=== PATIENT | female | born 1945 | race Caucasian/White ===

== ENCOUNTER 2021-09-11 15:10 | Emergency (ER) | payer MEDICARE, SELFPAY ==
[2021-09-11 15:10] VITALS: BP 170/111; PULSE 69; RESP 16; TEMP 36; O2SAT 98; BMI 37.5
--- NOTE | 2021-09-11 15:32 | ED.VIS.BACK ---
HPI History of Present Illness Chief Complaint: Back Informant: patient and spouse/S.O. Onset/Context/Timing Onset: - (Acute on chronic) Context: Gradual Onset Injury: - (Denies any new injury) Quality: Aching and Throbbing Location: Lumbar, Buttock and Left Leg Current Severity: Moderate Maximum Severity: Severe Narrative Narrative: Patient present secondary to low back pain. She is a history of chronic back pain and is seen Dr. Napoles, spine surgeon as well as pain management. Patient is currently on Percocet and recently completed a course of prednisone. She states that she is supposed to follow-up this week for preadmission testing to have back surgery/discectomy. Patient presents today because her pain is not well controlled. She reports pain shooting down her left leg and most severe over the lateral portion of the left lower leg. She does complain of bilateral leg swelling over the last several days. Patient does report some problems with bladder control, however on further questioning she has the sensation that she needs to go to size difficulty getting to the bathroom in time. She denies fever or chills. [facility] Medical History (Updated 09/11/21 @ 17:[address] Maria Villa MD) Back pain GERD (gastroesophageal reflux disease) Hyperthyroidism Peripheral edema Home Medications Lantansprost 1 RIGHT EYE DAILY 09/03/13 [History Last Taken Unknown] aspirin 325 mg PO DAILY@0800 09/03/13 [History Last Taken Unknown] atenolol 75 mg PO DAILY 09/03/13 [History Last Taken 09/09/13 05:00] cholecalciferol (vitamin D3) [Vitamin D] 3,000 units PO DAILY 09/03/13 [History Last Taken Unknown] cranberry 400 mg PO 09/03/13 [History Last Taken Unknown] furosemide 40 mg PO DAILY 09/03/13 [History Last Taken Unknown] lansoprazole [Prevacid] 30 mg PO DAILY 09/03/13 [History Last Taken 09/09/13 05:00] lisinopril 40 mg PO DAILY 09/03/13 [History Last Taken 09/09/13 05:00] lorazepam 0.5 mg PO BID PRN PRN 09/03/13 [History Last Taken Unknown] methimazole 2.5 mg PO 09/03/13 [History Last Taken Unknown] multivitamin with folic acid [Thera] 1 tab PO DAILY 09/03/13 [History Last Taken Unknown] potassium chloride [K-Dur] 80 meq PO DAILY 09/03/13 [History Last Taken Unknown] methimazole 2.5 mg PO 5X/DAY 09/09/13 [History Last Taken 09/09/13 05:00] cyclobenzaprine 10 mg PO BID PRN #10 tab 09/11/21 [Rx Last Taken Unknown] oxycodone-acetaminophen [Percocet] 2 tab PO Q6H PRN 3 Days #20 tab 09/11/21 [Rx Last Taken Unknown] prednisone See Taper PO DAILY #63 tab 09/11/21 [Rx Last Taken Unknown] Allergy/AdvReac Type Severity Reaction Status Date / Time atorvastatin calcium Allergy MUSCLE Verified 09/11/21 15:13 [From Lipitor] CRAMPING gabapentin [From Neurontin] Allergy Swelling Verified 09/11/21 15:13 codeine AdvReac Vomiting Verified 09/11/21 15:13 meperidine HCl [From Demerol] AdvReac SEIZURE Verified 09/11/21 15:13 LIKE REACTION naproxen AdvReac Vomiting Verified 09/11/21 15:13 paroxetine HCl [From Paxil] AdvReac INCREASED Verified 09/11/21 15:13 SERATONIN LEVELS pregabalin [From Lyrica] AdvReac Swelling Verified 09/11/21 15:13 Sulfa (Sulfonamide AdvReac TALK Verified 09/11/21 15:13 Antibiotics) CRAZY Surgical History H/O: hysterectomy History of left knee replacement History of left shoulder replacement Social History Smoking Status: Former smoker ROS ROS ED Constitutional Constitutional ED: Denies chills or fever(s) Eyes Eyes: Denies change in vision ENT ENT ED: Denies sore throat Cardiovascular Cardiovascular: Denies chest pain Respiratory/Chest Respiratory/Chest: Denies cough or dyspnea Gastrointestinal Gastrointestinal: Denies abdominal pain, diarrhea, nausea or vomiting Genitourinary Genitourinary ED: Denies dysuria Musculoskeletal Musculoskeletal: Reports back pain Integumentary Denies rash Neurologic Neurologic: Reports other Details: Pain radiation to left leg ; Denies headache(s) or weakness Psychiatric Psychiatric: Denies anxiety or depression Allergic/Immunologic Allergic/Immunologic ED: Denies urticaria EXAM Physical Exam Const Vital Signs: 09/11/21 15:10 09/11/21 16:21 09/11/21 17:16 Temperature 96.8 F L Temperature Source Temporal Pulse Rate 69 66 60 Respiratory Rate 16 16 16 Blood Pressure 170/111 H 163/86 H 161/85 H Blood Pressure Mean 130 111 Pulse Ox 98 96 98 Oxygen Delivery Method Room Air Room Air Positive obese Nutritional Appearance: obese Eyes PERRL and EOMs intact bilaterally Neck supple Resp normal respiratory effort and clear to auscultation bilaterally Cardio regular rate and regular rhythm GI soft to palpation and non-tender Back/Spine Back/Spine Narrative: No tenderness of the thoracic or midline lumbar spine. She does have reproducible tenderness over the left SI joint and sciatic notch. No overlying skin changes. Extremity Extremity Narrative: 2-3+ edema noted to the bilateral lower extremities, symmetric. No significant erythema. Strong distal pulses. Neuro oriented x3 Neuro Narrative: No focal neuro deficits noted. Good strength on testing, but pain with movement. Sensorium / Orientation: alert Skin no rashes or lesions noted MDM MDM MDM Narrative Medical decision making narrative: Patient is initially given 4 mg of morphine, 4 mg of Zofran, 125 mg of Solu-Medrol. Lab work and Covid swab obtained in case of hospital admission needs. Lab Data Attestation: I reviewed the patient's lab results. Labs: Laboratory Results - last 24 hr 09/11/21 09/11/21 15:40 15:40 WBC 9.0 RBC 4.70 Hgb 14.0 Hct 41.9 MCV 89.1 MCH 29.8 MCHC 33.4 RDW Std Deviation 43.8 RDW Coeff of Ashwin 13.4 Plt Count 135 L MPV 12.4 H Immature Gran % (Auto) 0.200 Neut % (Auto) 66.0 Lymph % (Auto) 25.6 Titus % (Auto) 6.9 Eos % (Auto) 1.1 Baso % (Auto) 0.2 Absolute Neuts (auto) 6.0 Absolute Lymphs (auto) 2.31 Nucleated RBC % 0 Sodium 140 Potassium 4.1 Chloride 106 Carbon Dioxide 28.0 Anion Gap 6 BUN 17 Creatinine 0.72 Estim Creat Clear Calc 44.80 Est GFR (MDRD) Af Amer 101 Est GFR (MDRD) Non-Af 83 BUN/Creatinine Ratio 23.6 H Glucose 102 Calcium 9.1 Rapid Covid test negative. Treatment and Re-Evaluation Comments:: Nursing staff states that despite the morphine patient was still complaining of severe pain. She was given 1 mg of IV Dilaudid. I spoke with Dr. Napoles, her spine surgeon. He states that she has a nonacute disc that they do plan on doing him discectomy on. This is not done that would be done emergently as an inpatient. He recommended trying to control this current pain about and following up as an outpatient to schedule surgery. Patient is scheduled to see her PCP tomorrow morning for physical exam to be cleared for surgery. She would like to try to keep this appointment. She is currently on Percocet. I did advise her she could take 2 tabs at a time. We will also add a steroid taper and give her a muscle relaxer to help with spasm. She is complaining of bilateral leg swelling. She does admit that she recently cut her Lasix dose in half because she is having so much pain try to get to the bathroom. She did recently go back on her regular dose by did encourage her to double her dose the next few days to get the extra fluid off. There is nothing on her findings concerning for DVT at this time. We did discuss hospital admission for pain control and physical therapy. She is declining that at this time and wishes to try to go home. Discharge Plan Triage Chief Complaint: Back ED Provider: Maria Villa Dx/Rx/DC Orders Clinical Impression: Back pain Instructions: ED Back Pain (Acute or Chronic) Prescriptions: New oxycodone-acetaminophen [Percocet] 5-325 mg tablet 2 tab PO Q6H PRN (Reason: pain) 3 Days Qty: 20 RF: 0 cyclobenzaprine 10 mg tablet 10 mg PO BID PRN (Reason: muscle spasm) Qty: 10 RF: 0 prednisone 10 mg tablet See Taper mg PO DAILY Qty: 63 RF: 0 No Action furosemide 40 MG tablet 40 mg PO DAILY RF: 0 atenolol 25 MG tablet 75 mg PO DAILY RF: 0 lansoprazole [Prevacid] 30 MG capsule 30 mg PO DAILY RF: 0 lisinopril 20 MG tablet 40 mg PO DAILY RF: 0 potassium chloride [Klor-Con M20] 20 MEQ tablet 80 meq PO DAILY RF: 0 aspirin 325 MG tablet 325 mg PO DAILY@0800 RF: 0 methimazole 5 MG tablet 2.5 mg PO RF: 0 multivitamin with folic acid [Thera] 1 TABLET tablet 1 tab PO DAILY RF: 0 lorazepam 0.5 MG tablet 0.5 mg PO BID PRN PRN (Reason: Sleep) RF: 0 cholecalciferol (vitamin D3) [Vitamin D3] 1,000 UNIT capsule 3,000 units PO DAILY RF: 0 Lantansprost 1 Right Eye DAILY RF: 0 cranberry 400 MG capsule 400 mg PO RF: 0 methimazole 5 MG tablet 2.5 mg PO 5X/DAY RF: 0 Primary Care Provider: Orin Gates Referrals: Orin Gates DO [Primary Care Provider] - [facility] appointment Disposition Disposition: Home, Self Care
[2021-09-11] MEDS: MethylPREDNISolone 125 MG/2 ML Vial 80 MG IV (15:37)
[2021-09-11] MEDS: Ondansetron 4 MG/2 ML Vial IV (15:38)
[2021-09-11] MEDS: Morphine 4 MG/ML Syringe IV (15:39)
[2021-09-11 15:53] LABS: Absolute Lymphocyte Count 2.31 X10^3/uL (0.83-4.51); Basophil# 0.02 X10^3/uL; Basophil% 0.2 % (0-1); Eosinophils% 1.1 % (0-5); Hematocrit 41.9 % (37-47); Lymphocyte # 2.31 X10^3/ul (0.83-4.51); Lymphocyte % 25.6 % (19-41); Mean Corp Hgb Conc 33.4 g/dL (32-36); Mean Corpuscular Hgb 29.8 pg (27.0-32.0); Mean Corpuscular Volume 89.1 fL (81-99); Mean Platelet Vol. 12.4 fl (6.2-12.0); Monocyte# 0.62 X10^3/uL; Monocyte% 6.9 % (0-10); NRBC Flagged by Analyzer 0 % (0-5); Neutrophil # 5.96 X10^3/uL (2.7-7.7); Platelet Count 135 K/mm3 (150-450); RBC Distribution Width CV 13.4 % (11.6-14.6); RBC Distribution Width SD 43.8 fl (35.1-43.9)
[2021-09-11 16:07] LABS: Anion Gap 6 (5-15); BUN 17 mg/dL (7-18); BUN/Creat Ratio 23.6 RATIO (10-20); Calcium,Total 9.1 mg/dL (8.5-10.1); Chloride 106 mmol/L (98-107); Creatinine, Serum 0.72 mg/dL (0.55-1.02); EST Glomerular Filtration Rate 83 mL/min (>60); Est Glom Filt Rate - Afr Amer 101 mL/min (>60); Glucose 102 mg/dL (74-106); Potassium 4.1 mmol/L (3.5-5.1); Sodium Level 140 mmol/L (136-145)
[2021-09-11] MEDS: HYDROmorphone 1 MG/ML Syringe IV (16:19)
[2021-09-11 16:21] VITALS: BP 163/86; PULSE 66; RESP 16; O2SAT 96
[2021-09-11 17:16] VITALS: BP 161/85; PULSE 60; RESP 16; O2SAT 98
[2021-09-11] MEDS: cycloBENZAPRine HCl 10 MG Tablet PO (17:17)
== END 2021-09-11 17:37 | disposition home or self-care (01) ==
PROVIDERS: Emergency Provider Emergency Medicine; PCP Internal Medicine
DX: M54.9 Dorsalgia, unspecified (principal); G89.29 Other chronic pain; R60.0 Localized edema; E66.9 Obesity, unspecified; Z68.37 Body mass index [BMI] 37.0-37.9, adult; K21.9 Gastro-esophageal reflux disease without esophagitis; E05.90 Thyrotoxicosis, unspecified without thyrotoxic crisis or storm; Z79.82 Long term (current) use of aspirin; Z79.899 Other long term (current) drug therapy; Z87.891 Personal history of nicotine dependence
CPT/HCPCS: 80048; 85025; 87426; 96374; 96375; 99285; J7030; J2405

== ENCOUNTER 2021-12-01 06:53 | Observation (INO) | payer MEDICARE, SELFPAY ==
[2021-12-01] VITALS (14 sets, daily range): BP systolic 108–150; BP diastolic 58–98; PULSE 53–94; RESP 12–18; TEMP 35.6–36.8; O2SAT 93–100; BMI 37.0
[2021-12-01 06:31] LABS: Bedside Glucose 117 mg/dL (70-110)
--- NOTE | 2021-12-01 06:58 | PCM.OPRPT ---
Problems Associated Problem List Diagnoses (1) Lumbar stenosis: Report of Operation Date of Procedure: 12/01/21 Pre-Operative Diagnosis: 1. Lumbar stenosis, L3-4 with spondylosis 2. Lumbar degenerative disc disease L3-4 3. L3-4 disc herniation Post-Operative Diagnosis: 1. Lumbar stenosis, L3-4 with spondylosis 2. Lumbar degenerative disc disease L3-4 3. L3-4 disc herniation Surgery/Procedure Performed:: 1. L3 bilateral laminectomies, foraminotomies, decompression of bilateral nerve roots 2. L4 bilateral laminectomies, foraminotomies, decompression of bilateral nerve roots Description of Surgical Findings:: The patient is a 76-year-old female with intractable back and leg pain. Image studies confirm the above diagnoses. She has failed conservative treatments to include medication, physical therapy, and injections. The patient opted for operative intervention understanding the risk to include, but not limited to, infection, bleeding, damage to nerves arteries and veins, possibility of spinal fluid leak, continued pain, need for further surgery, deep vein thrombosis, pulmonary embolism, heart attack, risk of stroke or . The patient was identified in the preoperative holding area. There she received preoperative IV antibiotics, Ancef, and was then transferred to the operative suite. Once in the operative suite after general endotracheal anesthesia was established, the patient was positioned prone on the Berny operating table. All bony prominences were padded accordingly. The lumbar spine was prepped and draped in a standard surgical fashion. Bear hugger's were not turned on until the drapes were placed and sealed with Ioban. A midline incision was made and taken down to the lumbodorsal fascia. The fascia was then divided and subperiosteal dissection was taken down to the level of the L3-4 and L4-5 facet joints. Deep retractors were placed. A bone scalpel was used to make laminotomy cuts in the bilateral lamina of L3 and L4. Then a series of rongeurs and Kerrisons were used removing the spinous processes and lamina at L3 and L4. Bilateral foraminotomies were performed decompressing the bilateral nerve roots. The dura was retracted medially but no definitive disc herniation could be identified. The wound was thoroughly irrigated with saline solution. Tisseel was placed over the dura as a hemostatic agent. The fascia was closed with #1 Vicryl, subcutaneous with 2-0 Vicryl, and skin with 2-0 nylon. Sterile dressings were applied with Xeroform, 4 x 4, ABD and tape. Sponge instrument and needle counts were correct at the end of the case. The patient was extubated and taken to the PACU without incident. Ginny Huitron PA-C was present during the entire duration of the case and necessary for critical parts of the case including retraction and closure. Surgeon: Brandon Napoles air route traffic controller: Ginny Huitron Type of Anesthesia: General Specimen's removed: None Drains: None Estimated Blood Loss (mL): 25 Fluids Replaced: 1600 cc Grafts/Implants Used: None Complications None Admit VTE Documentation VTE Present on Admission: No
--- NOTE | 2021-12-01 06:58 | PCM.PN.ORT ---
Subjective Subjective The patient was seen and examined postoperatively in the PACU. She is resting comfortably. Her pain is well controlled. She denies any complaints including numbness tingling or weakness Objective Data Objective Data Vital Signs: Vital Signs Temp Pulse Resp BP Pulse Ox 97.9 F 62 18 135/97 H 98 12/01/21 06:42 12/01/21 06:42 12/01/21 06:42 12/01/21 06:42 12/01/21 06:42 Oxygen Delivery Method Room Air Weight: 229 lb 4.492 oz Body Mass Index (BMI) 37.0 Lab / Micro Data Labs: Laboratory Results - last 24 hr 12/01/21 06:24: POC Glucose 117 H Physical Exam Const alert, oriented x3 and no apparent distress General Appearance: cooperative and comfortable HEENT head/scalp atraumatic Eyes EOMs intact bilaterally and conjunctivae normal Neck full ROM General: normal visual inspection Chest inspection of chest normal Resp normal respiratory effort and normal air movement Cardio regular rate and regular rhythm Peripheral Pulses: pulses 2+ throughout GI soft to palpation, non-tender and non-distended Back/Spine Back/Spine Narrative: Dressing clean dry and intact Cervical Spine: cervical ROM normal Thoracic Spine / Upper Back: normal to inspection Lumbar Spine / Lower Back: normal to inspection Extremity normal to inspection, full ROM, normal capillary refill, no clubbing, cyanosis or edema and no calf tenderness Peripheral Pulses: Yes pulses 2+ throughout Skin no rashes or lesions noted General Skin Exam: no breakdown Neuro oriented x3, CN's II-XII intact bilaterally, moves all extremities, no focal motor deficits, no sensory deficits noted and deep tendon reflexes 2+ bilaterally Motor Exam: strength 5/5 throughout and muscle tone normal throughout Assessment & Plan Assessment/Plan (1) Lumbar stenosis: PLAN: Okay to admit to floor See orders Pain control and mobilization as tolerated Discharge planning, likely home tomorrow
--- NOTE | 2021-12-01 06:58 | PCM.DC.SUM ---
Providers Date of Admission: 12/01/21 Primary Care Physician: Dr. Orin Gates DO Reason For Visit: LUMBAR LAMINECTOMY DECOMPRESSION L3-L4 Diagnosis Discharge Diagnosis (1) Lumbar stenosis: Status: Acute Code(s): M48.061 - Spinal stenosis, lumbar region without neurogenic claudication Plan: Okay to discharge home See discharge instructions Follow-up with Dr. Napoles in 3 weeks for suture removal Medications at Discharge Home Medications atenolol 100 mg PO DAILY 09/03/13 cholecalciferol (vitamin D3) [Vitamin D3] 3,000 units PO DAILY 09/03/13 furosemide 40 mg PO DAILY 09/03/13 lansoprazole [Prevacid] 30 mg PO DAILY 09/03/13 lisinopril 20 mg PO BID 09/03/13 methimazole 2.5 mg PO DAILY 09/03/13 multivitamin with folic acid [Thera] 1 tab PO DAILY 09/03/13 potassium chloride [Klor-Con M20] 80 meq PO DAILY 09/03/13 cyclobenzaprine 10 mg PO BID PRN #10 tab 09/11/21 amlodipine 5 mg PO DAILY 11/17/21 coenzyme Q10 100 mg PO DAILY 11/17/21 estradiol 1 mg PO DAILY 11/17/21 omega-3 fatty acids 1,000 mg PO DAILY 11/17/21 simvastatin 40 mg PO DAILY 11/17/21 hydrocodone-acetaminophen 1 tab PO Q8H PRN 7 Days #28 tab 12/01/21 Hospital Course Operations - (L3, L4 laminectomy decompression) Summary of Care Provided Minutes Spent on Discharge: 15 Hospital Course: The patient is a 76-year-old female who underwent L3 and L4 laminectomy decompression on 12/01/2021. She was subsequently admitted to the floor. The hospitalist was consulted for medical management. The patient progressed well. Her pain was well controlled and she was mobilizing well with physical therapy. No significant medical issues were reported. She was subsequently discharged home on 12/02/2021 to follow-up with Dr. Napoles in 3 weeks. Physical Exam Narrative The patient was seen and examined postoperative day 1. She is lying in bed resting comfortably. She is experiencing some mild pain at her surgery site in the lower back but this is manageable. She has been out of bed multiple times with assistance and up to the bathroom without any issues. Her pain is worse with mobilization. She denies any other complaints including numbness tingling weakness or changes in bowel or bladder function. She is accompanied by her who contributed to the medical history. Const alert, oriented x3 and no apparent distress General Appearance: cooperative and comfortable Orientation / Consciousness: awake, oriented to person, oriented to place and oriented to time HEENT normocephalic and head/scalp atraumatic Eyes EOMs intact bilaterally and conjunctivae normal Neck full ROM General: normal visual inspection Chest inspection of chest normal Resp normal respiratory effort and normal air movement Cardio regular rate and regular rhythm Peripheral Pulses: pulses 2+ throughout GI soft to palpation, non-tender and non-distended Back/Spine Back/Spine Narrative: Dressing clean dry and intact Cervical Spine: cervical ROM normal Thoracic Spine / Upper Back: normal to inspection Extremity normal to inspection, full ROM, normal capillary refill, no clubbing, cyanosis or edema and no calf tenderness Peripheral Pulses: Yes pulses 2+ throughout Skin no rashes or lesions noted General Skin Exam: no breakdown Neuro oriented x3, CN's II-XII intact bilaterally, moves all extremities, no focal motor deficits, no sensory deficits noted and deep tendon reflexes 2+ bilaterally Motor Exam: strength 5/5 throughout and muscle tone normal throughout Weight / BMI Weight Weight: 229 lb 4.492 oz Body Mass Index (BMI) 37.0 ABG / Lab / Microbiology Data Laboratory: Laboratory Results - last 24 hr 12/01/21 06:24: POC Glucose 117 H D/C Instructions Discharge Diet: No restrictions Discharge Activity: Return to Normal Activity and - (No repetitive bending twisting or lifting greater than 5 pounds) Lifting Restrictions: 5 pounds Call your doctor if your incision/area has: Continuous Slow Oozing, Sudden Increased Bleeding, Increased Pain/ Swelling, Increased Redness, Foul Smelling Discharge and Swelling at the incision site Call your doctor if you observe: Fever of 101 or Higher, Coldness, Increased Pain, Numbness or Tingling, Change in Color, Inability to urinate, Inability to have a bowel movement, Using more than 1 pad per hour, Shortness of breath, Dizziness, Fainting spells, Swelling in the ankles, Chest pain, Prolonged hiccupping, Increased palpitations (irregular heartbeat), Calf discomfort and Uncontrolled pain Change Dressing in: Daily Cleanse incision/area with: Do not get Incision Wet and Keep Dressing Clean & Dry Additional Dressing/Incision Instructions: Daily dry dressing changes with iodine to incision Additional Instructions: 1. During your procedure, you received sedation through your IV. Please follow these instructions for the next 24 hours: Do not drive a motor vehicle, do not drink any alcoholic beverages, and do not sign any legal documents or make personal or business decisions. A responsible adult should stay with you at least 6 hours after the procedure. 2. Keep your surgical site/incision clean and the dressing dry and intact. 3. Monitor the incision site for any signs or symptoms of infection. Watch for redness, excessive swelling or drainage, or continued pain at the incision site after 3 days. Contact your physician immediately for a fever, chills or a temperature of 101.5? F or greater. 4. Take your medication exactly as prescribed by your physician. Do not attempt to wean yourself off any of your medications even though your pain is improving. This process needs to be carefully monitored by your doctor. Take any antibiotics prescribed exactly as directed and until they are gone. 5. Avoid stretching, bending, pulling, twisting or any sudden movements. Do not bend or twist at the waist. 6. No lifting greater than 5 pounds. 7. Do not operate a motor vehicle, equipment or a power tool while taking pain medication 8. Do not have any manipulation done by a chiropractor or any other physician without first consulting with the surgeon 9. Please contact our office if you are even scheduled for a CT scan or an MRI. 10. Please call us if you have any questions, problems or concerns Follow-up with Dr. Napoles in 3 weeks for suture removal. Please Follow Up With: Brandon Napoles DO When: 3 weeks Meaningful Use Info Meaningful Use Diagnoses (Choose all that apply): None applicable Discharge Plan Admission Admit Date/Time: 12/01/21 06:53 Attending Provider: Audra Zeng Primary Care Provider: Orin Gates Consulting Providers: Radames Rush Discharge Orders/Prescriptions Prescriptions: New hydrocodone-acetaminophen 5-325 mg tablet 1 tab PO Q8H PRN (Reason: Pain) 7 Days Qty: 28 RF: 0 Continued furosemide 40 MG tablet 40 mg PO DAILY RF: 0 atenolol 25 MG tablet 100 mg PO DAILY RF: 0 lansoprazole [Prevacid] 30 MG capsule 30 mg PO DAILY RF: 0 lisinopril 20 MG tablet 20 mg PO BID RF: 0 potassium chloride [Klor-Con M20] 20 MEQ tablet 80 meq PO DAILY RF: 0 methimazole 5 MG tablet 2.5 mg PO DAILY RF: 0 multivitamin with folic acid [Thera] 1 TABLET tablet 1 tab PO DAILY RF: 0 cholecalciferol (vitamin D3) [Vitamin D3] 1,000 UNIT capsule 3,000 units PO DAILY RF: 0 cyclobenzaprine 10 mg tablet 10 mg PO BID PRN (Reason: muscle spasm) Qty: 10 RF: 0 amlodipine 5 mg tablet 5 mg PO DAILY RF: 0 simvastatin 40 mg tablet 40 mg PO DAILY RF: 0 omega-3 fatty acids Capsule 1,000 mg PO DAILY RF: 0 coenzyme Q10 100 mg Tablet 100 mg PO DAILY RF: 0 estradiol 1 mg tablet 1 mg PO DAILY RF: 0 Discontinued aspirin 325 MG tablet 325 mg PO DAILY@0800 RF: 0 Referrals / Follow Up: Brandon Napoles DO [STAFF PHYSICIAN] - Orin Gates DO [Primary Care Provider] -
[2021-12-01] MEDS: Cefazolin 2 GM in 0.9% Normal Saline 100 ML IV (07:25)
--- NOTE | 2021-12-01 07:30 | RAD_ITS ---
STUDY: X-RAY - LUMBAR SPINE REASON FOR EXAM: Female, 76 years old. LAMINECTOMY, LUMBAR, DISKECTOMY L3-4 TECHNIQUE: 1 view(s) of the lumbar spine were obtained. COMPARISON: None FINDINGS: The localization instrument is seen overlying the posterior aspect of the spinous processes of the L4 vertebra. RAD/Spine 1 View Any Level IMPRESSION: The localization clip is seen overlying the posterior aspect of the spinous processes of the L4 vertebrae. Electronically Signed: Jcarlos Mcdonough MD at 11:54 EST , Service support ,
[2021-12-01] MEDS: Lactated Ringers 1,000 ML 15 ML IV ×3 (07:33→10:18)
[2021-12-01] MEDS: THROMBIN (RECOMBINANT) 20,000 UNIT VIAL 20000 UNIT TOPICAL (08:20)
[2021-12-01] MEDS: Bupivacaine 0.25% 30 ML Vial (09:30)
[2021-12-01 11:16] LABS: Bedside Glucose 119 mg/dL (70-110)
[2021-12-01] MEDS: Ensure Surgery 237 ML LIQUID PO ×2 (14:43→18:49)
[2021-12-01] MEDS: Cholecalciferol (VIT D3) 25 MCG TABLET (1,000 UNITS) 75 MCG PO (14:43)
[2021-12-01] MEDS: Potassium Chloride Oral Tablet 20 MEQ 80 MEQ PO (14:43)
[2021-12-01] MEDS: Omega-3 Acid Ethyl Esters 1 GM Capsule PO (14:43)
[2021-12-01] MEDS: Multivitamins,Ther W-Minerals Tablet 1 TABLET PO (14:45)
[2021-12-01] MEDS: Morphine 4 MG/ML Syringe IV ×3 (15:00→22:15)
--- NOTE | 2021-12-01 15:39 | CASEMGMT ---
Spoke with Dr. Napoles regarding status of pt. Status changed at this time.
[2021-12-01] MEDS: Cefazolin 1 GM/50 ML BAG IV ×2 (16:56→22:34)
[2021-12-01] MEDS: Lactated Ringers 1,000 ML 100 ML IV (17:00)
--- NOTE | 2021-12-01 17:11 | PCM.PN.HOSP ---
Subjective Subjective Hospitalist consult from orthopedic surgeon, Dr. Napoles. Reason for consult: Medical management, diabetes mellitus type 2, hypothyroidism, irregular heartbeat and others HPI: The patient was admitted electively under orthopedic surgeon Dr. Napoles for elective surgery of lumbar stenosis. Patient has lumbar stenosis L3-L4 with spondylosis, lumbar degenerative disc disease L3-4 with disc herniation. Patient had L3 and L4 bilateral laminectomy, foraminotomies, decompression of bilateral nerve roots on 12/01/2021. Patient does not have shortness of breath, chest pain, palpitation or abdominal pain. She complains of shooting pain in left lower extremity. She had history of lumbar spinal pain bilaterally with radiation to both lower extremities. Does not have radiation to right lower extremity after surgery. She has history of thyroid nodule and saw Dr. Corley, principal quality engineer in the past and and has a follow-up coming up. She states she has history of irritable bowel syndrome and irregular heartbeat. Past medical history: Diabetes mellitus type 2, hypothyroidism, hold for SBP less than 130 mmHg history of DVT in 1959. Past surgical history: Hysterectomy, left TKR in 2002, carpal tunnel, tubal ligation and shoulder arthroscopy. No anesthetic complications. Objective Data Objective Data Vital Signs: Vital Signs Temp Pulse Resp BP Pulse Ox 97.2 F L 73 18 133/69 H 97 12/01/21 14:03 12/01/21 14:03 12/01/21 14:03 12/01/21 14:03 12/01/21 14:03 Oxygen Flow Rate (L/min) 2 Oxygen Delivery Method Nasal Cannula Weight: 229 lb 4.492 oz Body Mass Index (BMI) 37.0 Intake & Output: Intake and Output for Last 24 Hours 11/29/21 11/30/21 12/01/21 23:59 23:59 23:59 Intake Total 151.25 / 151.25 Output Total 350 / 350 Balance -198.75 / -198.75 Lab / Micro Data Labs: Laboratory Results - last 24 hr 12/01/21 06:24: POC Glucose 117 H 12/01/21 11:10: POC Glucose 119 H Radiography Diagnostic Testing: Radiology Impression Spine X-Ray 12/01/21 07:30 IMPRESSION: The localization clip is seen overlying the posterior aspect of the spinous processes of the L4 vertebrae. Electronically Signed: Jcarlos Mcdonough MD at 11:54 EST , Service support , Physical Exam Narrative General: Alert, Oriented x3, Cooperative HEENT: Atraumatic, PERRLA, EOMI, Normocephalic Oral: No Gingival or Mucosal Lesions/ Ulcerations Neck: Supple, No JVD, Negative Carotid Bruits Lungs: Air entry diminished in bilateral lung bases. No crepitation/rhonchi Cardiovascular: Regular rate, Regular Rhythm, Normal S1, Normal S2, No murmurs Abdomen: Bowel Sounds Present, Soft, Non Tender, Non-Distended : No renal angle tenderness. No suprapubic tenderness. Extremities: No edema, Capillary Refill Less than 3 Seconds Skin: No rashes, No breakdown Musculoskeletal spine: Patient told to not to sit up for rolled on therefore spine region was not examined. Dressing is dry. ROM is restricted in back due to surgery. Neurological: Cranial nerves II-XII grossly intact, DTR 2/4 and Symmetrical, Neuro grossly intact Psych/Mental Status: Normal Affect, Appropriate. Assessment & Plan Assessment/Plan (1) Lumbar stenosis: QUALIFIERS: Neurogenic claudication status: with neurogenic claudication Qualified Code(s): M48.062 - Spinal stenosis, lumbar region with neurogenic claudication PLAN: Hospitalist consult from orthopedic surgeon, Dr. Napoles. 1. Lumbar stenosis L3-L4 with spondylosis, lumbar degenerative disc disease L3-4 with disc herniation, neurogenic claudication. Patient had L3 and L4 bilateral laminectomy, foraminotomies, decompression of bilateral nerve roots on 12/01/2021. DVT prophylaxis as per surgeon. Pain control, PT OT. Patient spontaneously voided urine after surgery. Patient had bowel movement in the morning today. 2. Hyperthyroidism: Patient follows Dr. Corley. Continue methimazole 2.5 mg p.o. daily. Twelve-lead EKG reviewed. EKG from 24 November 2021, junctional rhythm at 62 bpm. QTC 412 ms. Moderate LVH. 3. Hypertension: Usually, blood pressure is controlled 117/69, 160s/59. The most recent 147/83. Blood pressure is controlled. Continue home antihypertensive medication atenolol and amlodipine. 4 dyslipidemia: On simvastatin and omega-3 fatty acid. 5. Diabetes mellitus type 2: Accu-Chek insulin coverage Humalog sliding scale. 6. GERD: On PPI. VT prophylaxis as per surgeon. Bilateral SCDs. She has thigh SILVA henry Charges/Coding Visit Charges Office Visits / Consults: 38666 IP Consult L3
--- NOTE | 2021-12-01 18:43 | PCS.PANDOC ---
PANDEMIC DOCUMENTATION INITIATED: Date: 06/27/2021 Time: 190
[2021-12-01] MEDS: oxyCODONE 5 MG Tablet PO (20:03)
[2021-12-01] MEDS: Lisinopril 20 MG Tablet PO (20:06)
[2021-12-02] VITALS: BP 128/76; PULSE 82; RESP 16; TEMP 36.6; O2SAT 94
[2021-12-02 01:35] VITALS: PULSE 73
[2021-12-02 04:03] VITALS: BP 134/67; PULSE 80; RESP 18; TEMP 36.6; O2SAT 94
[2021-12-02] MEDS: Morphine 4 MG/ML Syringe IV ×2 (04:51→11:33)
[2021-12-02 05:58] VITALS: PULSE 75
[2021-12-02] MEDS: oxyCODONE 5 MG Tablet PO ×2 (09:17→12:17)
[2021-12-02] MEDS: Cholecalciferol (VIT D3) 25 MCG TABLET (1,000 UNITS) 75 MCG PO (09:19)
[2021-12-02] MEDS: amLODIPine 5 MG Tablet PO (09:19)
[2021-12-02] MEDS: Lisinopril 20 MG Tablet PO (09:20)
[2021-12-02] MEDS: Potassium Chloride Oral Tablet 20 MEQ 80 MEQ PO (09:20)
[2021-12-02] MEDS: Furosemide 40 MG Tablet PO (09:20)
[2021-12-02] MEDS: Lansoprazole 15 MG Capsule.DR 30 MG PO (09:20)
[2021-12-02] MEDS: Multivitamins,Ther W-Minerals Tablet 1 TABLET PO (09:22)
[2021-12-02] MEDS: Omega-3 Acid Ethyl Esters 1 GM Capsule PO (09:22)
[2021-12-02] MEDS: Ensure Surgery 237 ML LIQUID PO (09:22)
[2021-12-02] MEDS: Atenolol 100 MG Tablet PO (09:22)
--- NOTE | 2021-12-02 09:40 | CASEMGMT ---
BEATRIZ BLEDSOE Face to Face with patient for initial transition planning/care coordination assessment. BEATRIZ BLEDSOE introduced self and role at [facility]. Patient lying in bed, alert and oriented. Patient willing to participate in assessment and is able to answer all questions appropriately. Care providers, pharmacy, and demographics verified. Patient wishes to discharge home but refused to work with therapy this morning. BEATRIZ BLEDSOE explained to patient the importance of working with therapy to determine if patient is safe to go home or if she will need SNF at discharge. Will monitor progress with therapy. Patient states he has no further needs or concerns at this time. CM to follow for discharge planning needs that may arise. PCP: Kody Specialists: madonna Napoles; Madonna Mancera Preferred Pharmacy: [facility] retail Insurance: [employer] Prescription Benefit: yes Living Will/HPOA: none LNOK: Living Arrangements: Patient live with in a first floor apartment with 5 steps and railing to enter the home. Patient states she was independent at home prior to surgery. Transportation: DME/HHC: Patient states she has shower chair, raised toilet, lift chair, grab bars, walker, and rollator at home. Patient denies previous HHC or SNF. Disposition Plan: Patient wishes to discharge home with family support and follow-up plans in place. Will monitor progress with therapy. Jennifer GLOVER, RN, CM
[2021-12-02 09:47] VITALS: PULSE 87
[2021-12-02 11:35] VITALS: PULSE 78
[2021-12-02 11:54] LABS: AST(SGOT) 21 U/L (15-37); Alanine Aminotransfer ALT/SGPT 19 U/L (13-56); Albumin, Serum 3.3 g/dL (3.2-5.0); Alkaline Phosphatase 51 U/L (45-117); Anion Gap 4 (5-15); BUN 12 mg/dL (7-18); Calcium,Total 9.2 mg/dL (8.5-10.1); Chloride 107 mmol/L (98-107); Creatinine, Serum 0.67 mg/dL (0.55-1.02); EST Glomerular Filtration Rate 91 mL/min (>60); Est Glom Filt Rate - Afr Amer 110 mL/min (>60); Globulin 3.4 g/dL (2.2-4.2); Glucose 155 mg/dL (74-106); Potassium 4.1 mmol/L (3.5-5.1); Protein, Total 6.7 g/dL (6.4-8.2); Sodium Level 140 mmol/L (136-145)
--- NOTE | 2021-12-02 12:03 | NURSING ---
had come to the desk requesting pain medication for his . states she is in awful pain and can't get comfortable. Pt had been given OxyIr earlier this am. Pt states I just want Hospice to come in and I just want to . I have been putting up with this pain for 6-9 months. Morphine 4 mg given IV as ordered. Pt states that she had wet the bed. CANVAS WORKER in to assist in changing patient. no urine noted. patient turned very well from side to side and did not appear to be in any discomfort when turning. Discussed with BEATRIZ La.
--- NOTE | 2021-12-02 12:07 | PCM.PN.HOSP ---
Subjective Subjective Follow-up for post-op medical management after lumbar surgery: Patient was seen and examined. Complains of severe pain in the lower back. Denied any fever or chills. Objective Data Objective Data Vital Signs: Vital Signs Temp Pulse Resp BP Pulse Ox 97.8 F 87 18 134/67 H 94 12/02/21 04:03 12/02/21 09:47 12/02/21 04:03 12/02/21 04:03 12/02/21 04:03 Oxygen Flow Rate (L/min) 2 Oxygen Delivery Method Room Air Weight: 104 kg Body Mass Index (BMI) 37.0 Intake & Output: Intake and Output for Last 24 Hours 11/30/21 12/01/21 12/02/21 23:59 23:59 23:59 Intake Total 956.83 / 956.83 293.33 / 293.33 Output Total 350 / 350 Balance 606.83 / 606.83 293.33 / 293.33 Lab / Micro Data Result Diagrams: 12/02/21 10:56 12/02/21 10:56 Labs: Laboratory Results - last 24 hr 12/02/21 10:56: Sodium 140, Potassium 4.1, Chloride 107, Carbon Dioxide 29.0, Anion Gap 4 L, BUN 12, Creatinine 0.67, Estim Creat Clear Calc 44.10, Est GFR (MDRD) Af Amer 110, Est GFR (MDRD) Non-Af 91, BUN/Creatinine Ratio 18.0, Glucose 155 H, Calcium 9.2, Total Bilirubin 0.30, AST 21, ALT 19, Alkaline Phosphatase 51, Total Protein 6.7, Albumin 3.3, Globulin 3.4, Albumin/Globulin Ratio 1.0 Physical Exam Narrative Physical exam: General: Alert, Oriented x3, Cooperative, appeared anxious, in pain HEENT: Atraumatic Oral: Moist Mucosa Neck: Supple Lungs: Clear to auscultation Cardiovascular: HS I+II, regular, no murmurs Abdomen: Bowel Sounds Present, Soft, Non Tender Extremities: No edema Assessment & Plan Assessment/Plan (1) Lumbar stenosis: QUALIFIERS: Neurogenic claudication status: with neurogenic claudication Qualified Code(s): M48.062 - Spinal stenosis, lumbar region with neurogenic claudication PLAN: 1. POD #1 status post lumbar surgery-bilateral laminectomy, foraminotomies, decompression of bilateral nerve root for L3-L4 lumbar stenosis with spondylolisthesis, DJD, disc herniation, neurogenic claudication Continue with scheduled Tylenol, as needed oxycodone, Flexeril as needed, Add lidocaine 2 patches daily PT and OT to evaluate and treat 2. Hyperthyroidism, continue methimazole 3. Hypertension, controlled, continue amlodipine, atenolol, lisinopril, 4.Dyslipidemia, continue on simvastatin and omega-3 fatty acid. 5. Type 2 DM, blood sugars fairly controlled, continue insulin sliding scale with blood glucose checks 6. DVT PPx- SCDs Charges/Coding Visit Charges Inpatient E&M: 30048 Subs Hosp L2
[2021-12-02] MEDS: Methimazole 5 MG Tablet 2.5 MG PO (12:48)
[2021-12-02] MEDS: Estradiol 1 MG Tablet PO (12:48)
== END 2021-12-02 13:45 | disposition home or self-care (01) ==
LOC: SDC 08:16 → MS3 15:32
PROVIDERS: Admitting Provider Orthopaedic Surgery; PCP Internal Medicine; Referring Provider Orthopaedic Surgery; Visit Provider Internal Medicine
PROC: (CPT 63030; principal; 2021-12-01 07:00)
DX: M48.061 Spinal stenosis, lumbar region without neurogenic claudication (principal); E11.9 Type 2 diabetes mellitus without complications; Z68.37 Body mass index [BMI] 37.0-37.9, adult; M51.36 Other intervertebral disc degeneration, lumbar region; M51.26 Other intervertebral disc displacement, lumbar region; E05.90 Thyrotoxicosis, unspecified without thyrotoxic crisis or storm; I49.9 Cardiac arrhythmia, unspecified; Z86.718 Personal history of other venous thrombosis and embolism; M47.26 Other spondylosis with radiculopathy, lumbar region; E66.8 Other obesity; Z79.899 Other long term (current) drug therapy; Z79.82 Long term (current) use of aspirin; Z87.891 Personal history of nicotine dependence; M48.062 Spinal stenosis, lumbar region with neurogenic claudication; K21.9 Gastro-esophageal reflux disease without esophagitis; E78.00 Pure hypercholesterolemia, unspecified
CPT/HCPCS: 63047; 63048; 36415; 72020; 76000; 80053; 82962; 96361; 96365; 96366; 96375; 96376; 97116; 97162; 97530; 99218; 99251; J7120; G0378; G0463; J0330; J2405

== ENCOUNTER 2022-02-07 08:22 | Outpatient (RCR) | payer MEDICARE, SELFPAY | END 2022-02-07 15:32 | disposition home or self-care (01) | LOC: WC 08:22 | PROVIDERS: PCP Internal Medicine; Visit Provider Surgery | DX: Z09 Encounter for follow-up examination after completed treatment for conditions other than malignant neoplasm (principal) ==